=== PATIENT | female | born 1965 | race Two or more races ===

== ENCOUNTER 2016-09-12 18:04 | Inpatient (IN) | payer SELFPAY ==
[~2016-09-12] VITALS: Ht 165.1 cm; Wt 95.3 kg
[2016-09-12 18:54] LABS: BASOPHILS % (AUTO) 0.3 % (0.0-2.0); EOSINOPHILS % (AUTO) 0.3 % (0.0-6.0); HEMATOCRIT 49 % (33-45); HEMOGLOBIN 16.5 g/dL (11.5-14.8); LYMPHOCYTES # (AUTO) 2.4 /CMM (0.8-4.8); MEAN CORPUSCULAR HEMOGLOBIN 32 PG (26.0-33.0); MEAN CORPUSCULAR HGB CONC 34 g/dl (31.0-36.0); MEAN CORPUSCULAR VOLUME 95 fL (82-100); MONOCYTES # (AUTO) 0.4 /CMM (0.1-1.30); MONOCYTES % (AUTO) 6.6 % (2.0-12.0); NEUTROPHILS # (AUTO) 3.1 /CMM (1.8-8.9); NEUTROPHILS % (AUTO) 52.8 % (43.0-81.0); PLATELET COUNT (AUTO) 265 /CMM (150-450); RDW COEFFICIENT OF VARIATION 15.3 (11.5-15.0); RED BLOOD CELL COUNT(AUTO) 5.12 MIL/uL (4.0-5.2); WHITE BLOOD COUNT (AUTO) 5.9 K/uL (4.3-11.0)
[2016-09-12] MEDS ORDERED: ALBUTEROL FS 2.5 MG/3 ML VIAL.NEB NEB ONE (19:00)
[2016-09-12] MEDS ORDERED: IPRATROPIUM NEB FS 0.5 MG/2.5 ML AMPUL.NEB NEB ONE (19:00)
[2016-09-12 19:05] LABS: CALCIUM, SERUM 8.9 mg/dL (8.5-10.1); CARBON DIOXIDE 21 mmol/L (21-32); CHLORIDE 94 mmol/L (98-107); CREATININE 0.8 mg/dL (0.6-1.3); GLUCOSE 94 mg/dL (74-106); POTASSIUM 4.6 mmol/L (3.5-5.1); SODIUM SERUM 133 mmol/L (136-145); UREA NITROGEN, BLOOD 3 mg/dL (7-18)
[2016-09-12 19:07] LABS: INR 0.96 (0.87-1.13)
[2016-09-12] MEDS ORDERED: IPRATROPIUM NEB FS 0.5 MG/2.5 ML AMPUL.NEB ONE ×2 (19:08→23:56)
[2016-09-12] MEDS ORDERED: ALBUTEROL FS 2.5 MG/3 ML VIAL.NEB ONE ×2 (19:08→23:56)
[2016-09-12 19:12] LABS: TROPONIN I < 0.017 ng/mL (0.00-0.056)
[2016-09-12 19:17] LABS: ALANINE AMINOTRANSFERASE 130 U/L (12-78); ALBUMIN 3.5 g/dL (3.4-5.0); ALKALINE PHOSPHATASE 113 U/L (46-116); ASPARTATE AMINOTRANSFERASE 179 U/L (15-37); B-TYPE NATRIURETIC PEPTIDE < 5 PG/ML (0-125); BILIRUBIN,DIRECT 0.1 mg/dL (0.0-0.2); BILIRUBIN,TOTAL 0.3 mg/dL (0.2-1.0); TOTAL PROTEIN, SERUM 7.6 g/dL (6.4-8.2)
[2016-09-12] MEDS ORDERED: IV NS 0.9% 250 ML IV ONE (19:30)
[2016-09-12] MEDS ORDERED: ONDANSETRON HCL/PF - ER 4 MG/2 ML VIAL IV ONE (19:30)
[2016-09-12] MEDS ORDERED: IOHEXOL-350 100 ML VIAL IV ONE (19:31)
[2016-09-12] MEDS ORDERED: CT SWABBABLE VALVE TRANS SET 1 EA INFUS.SET MC ONE (19:31)
[2016-09-12] MEDS ORDERED: MORPHINE SULFATE INJ 4 MG/ML DISP.SYRIN ONE (20:09)
[2016-09-12] MEDS ORDERED: MORPHINE SULFATE INJ 2 MG/ML DISP.SYRIN IM ONE (21:00)
[2016-09-12] MEDS ORDERED: LORAZEPAM INJ 2 MG/ML VIAL IV STA (21:19)
[2016-09-12] MEDS ORDERED: LORAZEPAM INJ 2 MG/ML VIAL ONE (21:20)
[2016-09-12] MEDS ORDERED: ASPIRIN 81 MG TAB.CHEW ONE (21:25)
[2016-09-12] MEDS ORDERED: ASPIRIN 81 MG TAB.CHEW PO SCH (21:30)
[2016-09-12 22:00] VITALS: BP 147/105
[2016-09-12] MEDS ORDERED: ZOLPIDEM TARTRATE 5 MG TABLET PO PRN (22:00)
[2016-09-12] MEDS ORDERED: ACETAMINOPHEN 325 MG TABLET PO PRN (22:00)
[2016-09-12] MEDS ORDERED: HYDROCODONE/APAP 5/325MG 1 EACH TABLET PO PRN (22:00)
[2016-09-12] MEDS ORDERED: Z GUARD REMEDY 2 OZ OINT TP PRN (22:00)
[2016-09-12] MEDS ORDERED: MAGNESIUM HYDROXIDE 30 ML UDC PO PRN (22:00)
[2016-09-12] MEDS ORDERED: MAG HYDROX/AL HYDROX/SIMETH 30 ML UDC PO PRN (22:00)
[2016-09-12] MEDS ORDERED: ONDANSETRON HCL/PF 4 MG/2 ML VIAL IVP PRN (22:00)
[2016-09-12] MEDS ORDERED: IV D5/0.45 NACL 1,000 ML IV ONE ×2 (23:30→23:57)
[2016-09-12] MEDS: ALBUTEROL FS 2.5 MG/3 ML VIAL.NEB NEB SCH (23:30)
[2016-09-12] MEDS ORDERED: MVI-12 10ML IV ONE (23:30)
[2016-09-12] MEDS ORDERED: Thiamine 100 MG in IV D5W 50 ML IV SCH (23:30)
[2016-09-12] MEDS ORDERED: Folic acid 1 MG in IV D5W 50 ML IV SCH (23:30)
[2016-09-12] MEDS: IPRATROPIUM NEB FS 0.5 MG/2.5 ML AMPUL.NEB NEB SCH (23:30)
[2016-09-12] MEDS ORDERED: AZITHROMYCIN 250 MG TABLET PO ONE (23:30)
[2016-09-12] MEDS ORDERED: AZITHROMYCIN 250 MG TABLET ONE (23:44)
[2016-09-12] MEDS ORDERED: IV SET PRIMARY PUMP SET 1 EA INFUS.SET MC ONE (23:58)
[2016-09-12] MEDS ORDERED: SECONDARY IV SET 1 EA INFUS.SET MC ONE (23:58)
[2016-09-13] VITALS: BP 162/107
[2016-09-13] MEDS ORDERED: Folic acid 1 MG/0.2 ML VIAL ONE (00:13)
[2016-09-13] MEDS ORDERED: Thiamine 100 MG/ML VIAL ONE (00:14)
[2016-09-13] MEDS ORDERED: IV NS 0.9% 50 ML IV ONE (00:21)
[2016-09-13] MEDS ORDERED: LORAZEPAM INJ 2 MG/ML VIAL ONE ×2 (01:58→06:20)
[2016-09-13] MEDS: LORAZEPAM INJ 2 MG/ML VIAL IV PRN ×5 (02:06→20:02)
[2016-09-13] MEDS ORDERED: IPRATROPIUM NEB FS 0.5 MG/2.5 ML AMPUL.NEB ONE (03:00)
[2016-09-13] MEDS ORDERED: ALBUTEROL FS 2.5 MG/3 ML VIAL.NEB ONE (03:01)
[2016-09-13] MEDS: IPRATROPIUM NEB FS 0.5 MG/2.5 ML AMPUL.NEB NEB SCH ×6 (03:09→23:46)
[2016-09-13] MEDS: ALBUTEROL FS 2.5 MG/3 ML VIAL.NEB NEB SCH ×6 (03:09→23:46)
[2016-09-13 04:00] VITALS: BP 164/101
[2016-09-13 07:09] VITALS: BP 156/90
[2016-09-13 07:41] LABS: BASOPHILS % (AUTO) 0.3 % (0.0-2.0); EOSINOPHILS % (AUTO) 0.4 % (0.0-6.0); HEMATOCRIT 46 % (33-45); HEMOGLOBIN 15.9 g/dL (11.5-14.8); LYMPHOCYTES # (AUTO) 2.1 /CMM (0.8-4.8); LYMPHOCYTES % (AUTO) 21.8 % (20.0-44.0); MEAN CORPUSCULAR HEMOGLOBIN 33 PG (26.0-33.0); MEAN CORPUSCULAR HGB CONC 35 g/dl (31.0-36.0); MEAN CORPUSCULAR VOLUME 95 fL (82-100); MONOCYTES # (AUTO) 0.5 /CMM (0.1-1.30); MONOCYTES % (AUTO) 5.7 % (2.0-12.0); NEUTROPHILS # (AUTO) 6.9 /CMM (1.8-8.9); NEUTROPHILS % (AUTO) 71.8 % (43.0-81.0); PLATELET COUNT (AUTO) 216 /CMM (150-450); RDW COEFFICIENT OF VARIATION 16.4 (11.5-15.0); RED BLOOD CELL COUNT(AUTO) 4.88 MIL/uL (4.0-5.2); WHITE BLOOD COUNT (AUTO) 9.6 K/uL (4.3-11.0)
[2016-09-13 08:00] VITALS: BP 156/90
[2016-09-13 08:19] LABS: CALCIUM, SERUM 8.2 mg/dL (8.5-10.1); CREATININE 0.9 mg/dL (0.6-1.3); MAGNESIUM 1.8 mg/dL (1.8-2.4); PHOSPHORUS 4.1 mg/dL (2.5-4.9); POTASSIUM 4.5 mmol/L (3.5-5.1)
[2016-09-13] MEDS: PANTOPRAZOLE 40 MG TABLET.DR PO SCH (11:05)
[2016-09-13] MEDS: methylPREDNISolone SOD SUCC 125 MG/2ML VIAL IV SCH (11:05)
[2016-09-13] MEDS: MULTIVITAMINS,THERAPEUTIC 1 UDTAB TABLET PO SCH (15:47)
[2016-09-13 16:00] VITALS: BP 137/109
[2016-09-13] MEDS ORDERED: SECONDARY IV SET 1 EA INFUS.SET MC ONE (19:58)
[2016-09-13] MEDS ORDERED: IV NS 0.9% 250 ML IV ONE (19:58)
[2016-09-13] MEDS ORDERED: IV SET PRIMARY PUMP SET 1 EA INFUS.SET MC ONE (19:58)
[2016-09-13 20:00] VITALS: BP 159/109
[2016-09-13] MEDS ORDERED: Thiamine 100 MG in IV D5W 50 ML IV SCH (21:00)
[2016-09-13] MEDS ORDERED: Folic acid 1 MG in IV D5W 50 ML IV SCH (22:00)
[2016-09-13] MEDS ORDERED: AZITHROMYCIN 250 MG TABLET PO SCH (23:30)
[2016-09-14] MEDS ORDERED: LORAZEPAM INJ 2 MG/ML VIAL ONE ×2 (00:26→04:41)
[2016-09-14] MEDS: LORAZEPAM INJ 2 MG/ML VIAL IV PRN ×5 (00:31→17:27)
[2016-09-14] MEDS: IPRATROPIUM NEB FS 0.5 MG/2.5 ML AMPUL.NEB NEB SCH ×4 (02:30→14:22)
[2016-09-14] MEDS: ALBUTEROL FS 2.5 MG/3 ML VIAL.NEB NEB SCH ×4 (02:30→14:23)
[2016-09-14 08:00] VITALS: BP 121/88
[2016-09-14] MEDS: MULTIVITAMINS,THERAPEUTIC 1 UDTAB TABLET PO SCH (08:01)
[2016-09-14] MEDS: PANTOPRAZOLE 40 MG TABLET.DR PO SCH (08:01)
[2016-09-14] MEDS: methylPREDNISolone SOD SUCC 125 MG/2ML VIAL IV SCH (08:02)
[2016-09-14 09:15] LABS: ALBUMIN 3.1 g/dL (3.4-5.0); BILIRUBIN,TOTAL 0.4 mg/dL (0.2-1.0); CREATININE 1.1 mg/dL (0.6-1.3); POTASSIUM 3.4 mmol/L (3.5-5.1)
[2016-09-14 15:29] VITALS: BP 137/94
[2016-09-14 16:00] VITALS: BP 145/89
== END 2016-09-14 18:12 | disposition home or self-care (01) | DRG 897 ==
LOC: ER 18:07 → TELE 21:06 → MED 09-13 16:27
PROVIDERS: ADMIT Family Medicine; ATTEND Family Medicine
DX: F10.239 Alcohol dependence with withdrawal, unspecified (principal); E87.1 Hypo-osmolality and hyponatremia; J44.1 Chronic obstructive pulmonary disease with (acute) exacerbation; F11.20 Opioid dependence, uncomplicated; R07.89 Other chest pain; F10.229 Alcohol dependence with intoxication, unspecified; Y90.9 Presence of alcohol in blood, level not specified; E66.01 Morbid (severe) obesity due to excess calories; G47.33 Obstructive sleep apnea (adult) (pediatric); F17.210 Nicotine dependence, cigarettes, uncomplicated; I10 Essential (primary) hypertension; Z85.6 Personal history of leukemia; R74.0 Nonspecific elevation of levels of transaminase and lactic acid dehydrogenase [LDH]; Z68.34 Body mass index [BMI] 34.0-34.9, adult; Z71.6 Tobacco abuse counseling; E86.1 Hypovolemia
CPT/HCPCS: 36415; 71010-TC; 76700-TC; 80048-TC; 80053-TC; 80061-TC; 80076-TC; 83690-TC; 83735-TC; 83880; 84100-TC; 84484-TC; 85025-TC; 85730-TC; 87081-TC; 93307-TC; A4216; A4606; J2060; J2270; J2930; J3411; J3490; J7050; J7060; Q9967; Z7610